=== PATIENT | male | born 1960 | race Caucasian/White ===

== ENCOUNTER 2022-11-07 22:46 | Emergency (ER) | payer BC ==
[2022-11-07] MEDS ORDERED: TRIM/SULFAMETH 160/800 (SEPTRA DS) TAB PO ONE ×2 (22:57→23:00)
[2022-11-07 22:59] VITALS: BP 168/104
[2022-11-07] MEDS ORDERED: CLIN150C20 PO (23:00)
[2022-11-07] MEDS ORDERED: CLINDAMYCIN 150 MG (CLEOCIN) CAP PO STA (23:01)
--- NOTE | 2022-11-07 23:01 | ED Integumentary General ---
General Chief Complaint: Skin/Wound Problems Stated Complaint: L ARM SORE Nursing Triage Note: Pt complaining of a sore on his left upper arm that has redness streaking up his arm Source: patient Exam Limitations: no limitations History of Present Illness Date Seen by Provider: Nov 07, 2022 Time Seen by Provider: 22:48 Initial Comments 62-year-old male presents to the emergency department today for redness, tenderness of his left arm. He had a lesion removed last with dermatology. He states he got a little red afterwards and he was given clobetasol cream. Tonight the redness reappeared and started streaking up his arm. He also has tenderness in his left axilla. No fevers or chills. No nausea or vomiting. All other systems reviewed and negative except documented per HPI. Voice recognition software was used to help create this chart Allergies and Home Medications Allergies Coded Allergies: No Known Drug Allergies (Unverified , 11/07/22) Patient Home Medication List Home Medication List Reviewed: Yes Review of Systems Review of Systems Constitutional: see HPI Past Gnqtgvv-Wawznb-Manhhu Hx Patient Social History Tobacco Use?: No Use of E-Cig and/or Vaping dev: No Substance use?: No Alcohol Use?: No Physical Exam Vital Signs Capillary Refill : Less Than 3 Seconds General Appearance: WD/WN, no apparent distress Neck: non-tender, supple Cardiovascular: regular rate, rhythm, no murmur Respiratory: chest non-tender, lungs clear, normal breath sounds, no respiratory distress, no accessory muscle use Extremities: other (There is no open wound to the left forearm. Approximately 2 cm in length. There is fibrinous tissue in the base. There is some hyperemia, erythema surrounding and streaking up to his medial left arm. No obvious palpable axillary lymph nodes but he is tender in his axillary region.) Neurologic/Psychiatric: alert Skin: other (Skin findings as above) Progress/Results/Core Measures Results/Orders My Orders Orders - BEBETO WHITTEN DO Sulfamethoxazole/Trimet Ds Tab (Bactrim (11/07/22 23:00) Blood Pressure Mean: 125 Departure Communication (Admissions) Patient is hemodynamically stable with normal vital signs. No evidence of s eptic type infection he is nontoxic in appearance. He has cellulitis is clearly streaking up his left arm. He has some tender lymph nodes in his left axilla. He is given a p.o. dose of clindamycin here and discharged with clindamycin to his pharmacy. He is advised to follow-up with his educational technologist regarding the surgical wound infection. He states understanding. Impression Primary Impression: Cellulitis Qualified Codes: L03.114 - Cellulitis of left upper limb Disposition: HOME, SELF-CARE Condition: Stable Departure-Patient Inst. Patient Instructions: Cellulitis (Skin Infection), Adult ED Add. Discharge Instructions: Take antibiotics as prescribed until they are gone. Do not stop taking them simply because you are feeling better. Make sure to take it with food so not to upset your stomach. Your symptoms may slightly worsen or stabilize for the next 24 hours but then should gradually get better. Return to the emergency department for any fevers vomiting or if your symptoms change in any other way concerning to you. You should call your educational technologist and let them know about the infection as they may want to see you sooner. All discharge instructions reviewed with patient and/or family. Voiced understanding. Scripts Clindamycin HCl (Clindamycin HCl) 150 Mg Capsule 300 MG PO TID for 10 Days, #60 CAP Prov: BEBETO WHITTEN DO 11/07/22 BEBETO WHITTEN DO Nov 07, 2022 23:01
[2022-11-07] MEDS ORDERED: CLINDAMYCIN 150 MG (CLEOCIN) CAP PO ONE (23:03)
== END 2022-11-07 23:04 | disposition home or self-care (01) ==
LOC: ER FS 22:49
DX: L03.114 Cellulitis of left upper limb (principal); Z28.310 Unvaccinated for COVID-19
CPT/HCPCS: 99283